=== PATIENT | female | born 1970 | race Two or more races ===

== ENCOUNTER 2017-06-08 09:04 | Outpatient (CLI) | payer OTHER | END 2017-06-08 09:18 | disposition home or self-care (01) | LOC: MAMO-SONO 09:04 | DX: M81.0 Age-related osteoporosis without current pathological fracture (principal); N60.11 Diffuse cystic mastopathy of right breast; N60.12 Diffuse cystic mastopathy of left breast; N83.00 Follicular cyst of ovary, unspecified side; N80.9 Endometriosis, unspecified; D25.9 Leiomyoma of uterus, unspecified; Z13.820 Encounter for screening for osteoporosis ==